=== PATIENT | male | born 1990 | race African-American/Black ===

== ENCOUNTER 2022-01-09 04:52 | Inpatient (IN) | payer OTHER ==
[2022-01-09] VITALS (45 sets, daily range): BP systolic 133–220; BP diastolic 43–139
[~2022-01-09] VITALS: Ht 170.2 cm; Wt 121.3 kg
[2022-01-09 05:41] LABS: BASOPHILS % 0.9 % (0.0-2.0); EOSINOPHILS % 2.5 % (0.0-5.0); HEMATOCRIT. 43.9 % (42.0-52.0); HEMOGLOBIN. 14.9 g/dL (14.0-18.0); LYMPHOCYTES % 18.5 % (20.0-50.0); MEAN CORPUSCULAR HEMOGLOBIN 31.7 pg (28.0-32.0); MEAN CORPUSCULAR VOLUME 93.3 fL (80.0-94.0); MEAN PLATELET VOLUME 10.1 fl (7.4-10.4); NEUTROPHILS % 71.1 % (40.0-76.0); PLATELET 298 x1000/uL (130-400); RED CELL DISTRIBUTION WIDTH 13.4 % (11.6-14.6)
[2022-01-09 05:50] LABS: CHLORIDE 108 mEq/L (98-107)
[2022-01-09 05:56] LABS: BG DEOXYHEMOGLOBIN 3.6 % (0.0-5.0); BG FRACTION INSPIRED OXYGEN 30; BG HCO3 ACT 23.5 mmol/L (22.0-26.0); BG METHEMOGLOBIN 0.2 % (0.0-1.5); BG OXYGEN SATURATION 96.4 % (92.0-98.5); BG OXYHEMOGLOBIN 95.2 % (94.0-97.0); BG PCO2 38.6 mmHg (35.0-45.0); BG PH 7.402 (7.350-7.450); BG SAMPLE SITE RIGHT RADIAL; BG TOTAL HEMOGLOBIN 14.6 g/dL (12.0-18.0); BG VENT MODE MASK - BIPAP
[2022-01-09] MEDS ORDERED: NITROGLYCERIN 50MG PREMIX 250 ML IV PRN (06:15)
[2022-01-09] MEDS ORDERED: FUROSEMIDE 40MG/4ML VIAL IVP SCH (06:15)
[2022-01-09] MEDS: NITROGLYCERIN 50MG PREMIX 250 ML IV PRN ×4 (06:39→21:22)
[2022-01-09] MEDS ORDERED: POTASSIUM CHLORIDE INJ 40 MEQ in DEXT 5% WATER 250 ML IV ONE (08:45)
[2022-01-09 09:07] LABS: CLARITY URINE CLEAR (CLEAR); COLOR URINE YELLOW (YELLOW); KETONES URINE NEGATIVE (NEGATIVE); LEUKOCYTE ESTERASE URINE NEGATIVE (NEGATIVE); NITRITE URINE NEGATIVE (NEGATIVE); OCCULT BLOOD URINE TRACE (NEGATIVE); PH URINE 5.5 (4.5-8.0); PROTEIN URINE 3+ (NEGATIVE); UROBILINOGEN URINE 0.2 E.U./dL (0.2-1.0)
[2022-01-09] MEDS: POTASSIUM CHLORIDE 20MEQ TABLET SR PO SCH ×2 (09:35→17:52)
[2022-01-09] MEDS ORDERED: LORAZEPAM 0.5MG TABLET PO PRN (11:30)
[2022-01-09] MEDS ORDERED: ONDANSETRON HCL 4MG/2ML INJ IV PRN (11:30)
[2022-01-09] MEDS ORDERED: ACETAMINOPHEN 325MG TABLET PO PRN ×2 (11:30)
[2022-01-09] MEDS ORDERED: HYDROCODONE/ACETAMINOPHEN 5/325MG TABLET PO PRN (11:30)
[2022-01-09] MEDS ORDERED: IPRATROPIUM/ALBUTEROL 0.5-3(2.5)MG/3ML NEB HHN PRN (11:30)
[2022-01-09] MEDS ORDERED: CLONIDINE 0.1MG TABLET PO PRN (11:30)
[2022-01-09] MEDS ORDERED: DOCUSATE SODIUM 100MG CAPSULE PO PRN (11:30)
[2022-01-09] MEDS: KCL 20MEQ/100ML X 2 FOR TOTAL KCL 40MEQ/200ML IV SCH ×2 (11:31→13:14)
[2022-01-09] MEDS: AMLODIPINE 5MG TABLET PO SCH ×2 (11:41→21:21)
[2022-01-09] MEDS: FUROSEMIDE 40MG/4ML VIAL IVP SCH (11:41)
[2022-01-09] MEDS ORDERED: LIDOCAINE HCL 1% 10 MG/ML 10ML VIAL ONE (11:48)
[2022-01-09] MEDS ORDERED: NALOXONE HCL 0.4MG/ML VIAL IV PRN (12:00)
[2022-01-09 13:27] LABS: C REACTIVE PROTEIN CARDIAC 6.1 mg/L (0.00-3.00); T4 FREE 1.28 ng/dL (0.76-1.46)
[2022-01-09] MEDS ORDERED: HYDRALAZINE 20MG/ML VIAL IV NR (13:45)
[2022-01-09] MEDS: IPRATROPIUM BROMIDE (0.02%) 0.5MG/2.5ML NEB HHN SCH ×2 (14:43→20:37)
[2022-01-09] MEDS: CLONIDINE 0.1MG TABLET PO SCH ×2 (15:24→17:52)
[2022-01-09] MEDS ORDERED: HYDRALAZINE 20MG/ML VIAL IV PRN (16:00)
[2022-01-09 16:30] LABS: *AMPHETAMINES SCREEN URINE NEGATIVE (NEGATIVE); *BARBITURATES SCREEN URINE NEGATIVE (NEGATIVE); *BENZODIAZEPINES SCREEN URINE NEGATIVE (NEGATIVE); *COCAINE SCREEN URINE NEGATIVE (NEGATIVE); CANNABINOID URINE SCREEN NEGATIVE (NEGATIVE); METHADONE URINE SCREEN NEGATIVE (NEGATIVE); OPIATES URINE SCREEN NEGATIVE (NEGATIVE); PHENCYCLIDINE URINE SCREEN NEGATIVE (NEGATIVE)
[2022-01-10] VITALS (60 sets, daily range): BP systolic 109–188; BP diastolic 54–108
[2022-01-10] MEDS: CLONIDINE 0.1MG TABLET PO SCH ×5 (00:01→23:33)
[2022-01-10] MEDS: NITROGLYCERIN 50MG PREMIX 250 ML IV PRN ×3 (01:24→16:37)
[2022-01-10] MEDS: IPRATROPIUM BROMIDE (0.02%) 0.5MG/2.5ML NEB HHN SCH ×2 (01:29→08:45)
[2022-01-10 06:34] LABS: BASOPHILS % 0.6 % (0.0-2.0); HEMATOCRIT. 29.7 % (42.0-52.0); HEMOGLOBIN. 10.2 g/dL (14.0-18.0); LYMPHOCYTES % 13.7 % (20.0-50.0); MEAN CORPUSCULAR HEMOGLOBIN 31.7 pg (28.0-32.0); MEAN CORPUSCULAR VOLUME 92.1 fL (80.0-94.0); MEAN PLATELET VOLUME 10.2 fl (7.4-10.4); MONOCYTES % 10.9 % (2.0-8.0); NEUTROPHILS % 73.8 % (40.0-76.0); PLATELET 186 x1000/uL (130-400); RED BLOOD CELL COUNT 3.22 mill/uL (4.7-6.1)
[2022-01-10] MEDS ORDERED: LOSARTAN POTASSIUM 25 MG TABLET PO SCH (09:00)
[2022-01-10] MEDS ORDERED: NIFEDIPINE XL 30MG TAB PO SCH (09:00)
[2022-01-10] MEDS: FUROSEMIDE 40MG/4ML VIAL IVP SCH (09:58)
[2022-01-10] MEDS: POTASSIUM CHLORIDE 20MEQ TABLET SR PO SCH ×2 (09:58→17:00)
[2022-01-10] MEDS: HYDRALAZINE HCL 25MG TABLET PO SCH ×2 (09:58→21:56)
[2022-01-10] MEDS: NIFEDIPINE XL 90MG TAB PO SCH (13:15)
[2022-01-10] MEDS: LOSARTAN POTASSIUM 50 MG TABLET PO SCH ×2 (13:15→17:00)
[2022-01-11] VITALS (41 sets, daily range): BP systolic 83–136; BP diastolic 39–89
[2022-01-11] MEDS: CLONIDINE 0.1MG TABLET PO SCH ×3 (05:08→17:05)
[2022-01-11 05:30] LABS: BASOPHILS % 0.8 % (0.0-2.0); EOSINOPHILS % 5.2 % (0.0-5.0); HEMATOCRIT. 30.3 % (42.0-52.0); HEMOGLOBIN. 10.7 g/dL (14.0-18.0); LYMPHOCYTES % 26.8 % (20.0-50.0); MEAN CORPUSCULAR HEMOGLOBIN 32.5 pg (28.0-32.0); MEAN CORPUSCULAR VOLUME 92.4 fL (80.0-94.0); MEAN PLATELET VOLUME 10.4 fl (7.4-10.4); MONOCYTES % 10.7 % (2.0-8.0); NEUTROPHILS % 56.5 % (40.0-76.0); PLATELET 187 x1000/uL (130-400); RED BLOOD CELL COUNT 3.28 mill/uL (4.7-6.1); RED CELL DISTRIBUTION WIDTH 13.2 % (11.6-14.6)
[2022-01-11 05:52] LABS: CHLORIDE 107 mEq/L (98-107); CREATINE KINASE 100 IU/L (39-308); PHOSPHORUS 3.8 mg/dL (2.5-4.9)
[2022-01-11] MEDS: POTASSIUM CHLORIDE 20MEQ TABLET SR PO SCH ×2 (08:55→17:05)
[2022-01-11] MEDS: FUROSEMIDE 40MG/4ML VIAL IVP SCH ×2 (08:56→17:05)
[2022-01-11] MEDS ORDERED: POTASSIUM CHLORIDE 20MEQ TABLET SR PO NR (09:45)
[2022-01-11] MEDS: HYDRALAZINE HCL 25MG TABLET PO SCH ×2 (09:47→21:08)
[2022-01-11] MEDS: LOSARTAN POTASSIUM 50 MG TABLET PO SCH ×2 (09:47→17:05)
[2022-01-11] MEDS: NIFEDIPINE XL 90MG TAB PO SCH (14:12)
[2022-01-12] VITALS: BP 132/126
[2022-01-12 04:00] VITALS: BP 140/101
[2022-01-12] MEDS: CLONIDINE 0.1MG TABLET PO SCH ×3 (04:58→11:31)
[2022-01-12 05:10] VITALS: BP 140/101
[2022-01-12] MEDS: FUROSEMIDE 40MG/4ML VIAL IVP SCH (06:20)
[2022-01-12 06:27] LABS: EOSINOPHILS % 6.9 % (0.0-5.0); HEMATOCRIT. 34.5 % (42.0-52.0); HEMOGLOBIN. 12.1 g/dL (14.0-18.0); LYMPHOCYTES % 34.1 % (20.0-50.0); MEAN CORPUSCULAR HEMOGLOBIN 32.6 pg (28.0-32.0); MEAN CORPUSCULAR VOLUME 93.2 fL (80.0-94.0); MEAN PLATELET VOLUME 10.9 fl (7.4-10.4); MONOCYTES % 7.2 % (2.0-8.0); NEUTROPHILS % 50.8 % (40.0-76.0); PLATELET 218 x1000/uL (130-400); RED CELL DISTRIBUTION WIDTH 13.4 % (11.6-14.6)
[2022-01-12 08:00] VITALS: BP 151/99
[2022-01-12] MEDS: LOSARTAN POTASSIUM 50 MG TABLET PO SCH (08:03)
[2022-01-12] MEDS: POTASSIUM CHLORIDE 20MEQ TABLET SR PO SCH (08:03)
[2022-01-12] MEDS: HYDRALAZINE HCL 25MG TABLET PO SCH (08:03)
[2022-01-12 08:45] LABS: CHLORIDE 107 mEq/L (98-107)
[2022-01-12] MEDS: NIFEDIPINE XL 90MG TAB PO SCH (12:33)
[2022-01-12] MEDS ORDERED: LOSA50TA3 PO (12:44)
[2022-01-12] MEDS ORDERED: CLON0.1T PO (12:44)
[2022-01-12] MEDS ORDERED: HYDR-4135 PO (12:44)
[2022-01-12] MEDS ORDERED: NIFE90TA60 PO (12:44)
[2022-01-12] MEDS ORDERED: FURO-151 MT (12:44)
[2022-01-12 12:53] VITALS: BP 141/86
[2022-01-12] MEDS ORDERED: HYDRALAZINE HCL 50MG TABLET PO SCH (14:00)
[2022-01-12] MEDS ORDERED: FUROSEMIDE 40MG TABLET PO SCH (18:00)
== END 2022-01-12 14:00 | disposition home or self-care (01) | DRG 133 ==
LOC: ER 04:52 → CVICU 08:36 → ENRESERV 08:42 → EDBEDREQTM 08:44 → EDBEDREQSVC 08:44 → EDBEDREQ 08:44 → 7WST 01-11 11:16
PROVIDERS: ADMIT Internal Medicine; ATTEND Internal Medicine
PROC: 02HV33Z Insertion of Infusion Device into Superior Vena Cava, Percutaneous Approach (ICD-10-PCS; principal; 2022-01-09)
PROC: B548ZZA Ultrasonography of Superior Vena Cava, Guidance (ICD-10-PCS; 2022-01-09)
PROC: 5A09357 Assistance with Respiratory Ventilation, Less than 24 Consecutive Hours, Continuous Positive Airway Pressure (ICD-10-PCS; 2022-01-09)
DX: J96.01 Acute respiratory failure with hypoxia (principal); N17.0 Acute kidney failure with tubular necrosis; I50.41 Acute combined systolic (congestive) and diastolic (congestive) heart failure; I13.0 Hypertensive heart and chronic kidney disease with heart failure and stage 1 through stage 4 chronic kidney disease, or unspecified chronic kidney disease; I31.3 Pericardial effusion (noninflammatory); I42.0 Dilated cardiomyopathy; E87.6 Hypokalemia; N18.9 Chronic kidney disease, unspecified; J84.9 Interstitial pulmonary disease, unspecified; R74.01 Elevation of levels of liver transaminase levels; D72.829 Elevated white blood cell count, unspecified; R80.9 Proteinuria, unspecified; N28.1 Cyst of kidney, acquired; I16.1 Hypertensive emergency; F12.90 Cannabis use, unspecified, uncomplicated; Z20.822 Contact with and (suspected) exposure to COVID-19; Z79.899 Other long term (current) drug therapy; Z82.49 Family history of ischemic heart disease and other diseases of the circulatory system; R77.8 Other specified abnormalities of plasma proteins
CPT/HCPCS: 36415; 36600; 71045; 76770; 76937; 80048; 80053; 80305; 81003; 82088; 82375; 82533; 82550; 82805; 83036; 83735; 83880; 84100; 84244; 84439; 84443; 84481; 84484; 85025; 85651; 86141; 87426; 93005; 93306; 94640; 94660; 99291; C1725; J0360; J1940; J3480; J3490; J7060

== ENCOUNTER 2023-08-21 07:25 | Emergency (ER) | payer OTHER ==
[~2023-08-21] VITALS: Ht 170.2 cm; Wt 132.9 kg
[~2023-08-21 07:25] MED LIST: CLON0.1T PO; FURO-151 MT; HYDR-4135 PO; LOSA-413 PO; NIFE90TA60 PO
[2023-08-21 07:49] VITALS: BP 200/119; TEMP 98.2; O2SAT 100
[2023-08-21 10:47] VITALS: PULSE 88; RESP 16
== END 2023-08-21 11:18 | disposition home or self-care (01) ==
LOC: ER 07:25
DX: R04.0 Epistaxis (principal); I10 Essential (primary) hypertension
CPT/HCPCS: 99281